=== PATIENT | male | born 1995 | race African-American/Black ===

== ENCOUNTER 2017-08-15 07:26 | Emergency (ER) | payer MEDICAID, OTHER ==
[~2017-08-15] VITALS: Ht 172.7 cm; Wt 72.6 kg
[2017-08-15] MEDS ORDERED: IBUPROFEN 800 MG TAB PO ONE (08:00)
[2017-08-15 08:11] VITALS: BP 131/83
== END 2017-08-15 08:51 | disposition home or self-care (01) ==
LOC: EDBD 07:26 → ER 07:31
DX: S39.012A Strain of muscle, fascia and tendon of lower back, initial encounter (principal); S01.531A Puncture wound without foreign body of lip, initial encounter; F17.210 Nicotine dependence, cigarettes, uncomplicated; V43.62XA Car passenger injured in collision with other type car in traffic accident, initial encounter; Y93.89 Activity, other specified; Y92.488 Other paved roadways as the place of occurrence of the external cause; Y99.8 Other external cause status
CPT/HCPCS: 72100

== ENCOUNTER 2018-05-07 08:38 | Emergency (ER) | payer MEDICAID ==
[~2018-05-07] VITALS: Ht 170.2 cm; Wt 72.6 kg
[2018-05-07 08:49] VITALS: BP 120/75
[2018-05-07] MEDS ORDERED: KETOROLAC TROMETH 60MG/2ML VIAL IM ONE (09:45)
== END 2018-05-07 10:39 | disposition home or self-care (01) ==
LOC: ER 08:41
DX: M54.5 Low back pain (principal); G89.29 Other chronic pain; F17.210 Nicotine dependence, cigarettes, uncomplicated; V49.9XXA Car occupant (driver) (passenger) injured in unspecified traffic accident, initial encounter; Y93.89 Activity, other specified; Y92.89 Other specified places as the place of occurrence of the external cause; Y99.8 Other external cause status
CPT/HCPCS: J1885

== ENCOUNTER 2019-08-28 17:40 | Emergency (ER) | payer MEDICAID ==
[~2019-08-28] VITALS: Ht 170.2 cm; Wt 72.6 kg
[2019-08-28 19:07] VITALS: BP 141/72
[2019-08-28] MEDS ORDERED: ACETAMINOPHEN 325 MG TAB PO ONE (19:15)
[2019-08-28] MEDS ORDERED: IBUPROFEN 800 MG TAB PO ONE (19:15)
[2019-08-28 19:58] LABS: Basophils # (auto) 0.1 10 ^3/uL (0-0.2); Eosinophils # (auto) 0.1 10 ^3/uL (0-0.8); Hemoglobin 12.5 g/dL (13.5-17.5); Mean Corpuscular Hemoglobin 23.4 pg (28.0-32.0); Monocytes # (auto) 0.7 10 ^3/uL (0-1.3); Nucleated Red Blood Cells % 0.1 %
[2019-08-28 19:59] LABS: Basophils % (auto) 0.8 % (0.0-2.0); Eosinophils % (auto) 0.8 % (0.0-7.0); Hematocrit 39.4 % (41.0-53.0); Lymphocytes # (auto) 1.8 10 ^3/uL (0.4-5.4); Lymphocytes % (auto) 17.4 % (10.0-50.0); Mean Corpuscular Hgb Conc. 31.7 g/dL (32.0-36.0); Mean Corpuscular Volume 73.9 fL (80.0-100.0); Monocytes % (auto) 6.4 % (0.0-12.0); Neutrophils # (auto) 7.7 10 ^3/uL (1.6-8.6); Neutrophils % (auto) 74.6 % (37.0-80.0); Platelet Count (auto) 359 10^3/uL (140-450); Red Blood Cells 5.32 10^6/uL (4.5-5.90); Red Cell Distribution Width 15.5 % (11.8-14.3); White Blood Cell 10.3 10^3/uL (4.4-10.8)
[2019-08-28 20:03] LABS: Alcohol, Urine < 3.0 mg/dL (0-5); Amphetamine Screen, Urine NEGATIVE (NEGATIVE); Barbiturate Scree,Urine NEGATIVE (NEGATIVE); Benzodiazephine Screen, Urine NEGATIVE (NEGATIVE); Cannabinoid Screen, Urine POSITIVE (NEGATIVE); Cocaine Screen, Urine NEGATIVE (NEGATIVE); Opiate Scree,Urine NEGATIVE (NEGATIVE); Phencyclidine Screen, Urine NEGATIVE (NEGATIVE)
[2019-08-28 20:03] LABS: Albumin 3.6 g/dL (3.4-5.0); Calcium 8.9 mg/dL (8.5-10.1); Potassium 3.3 mmol/L (3.5-5.1)
[2019-08-28 20:05] LABS: BUN/Creatinine Ratio 14.5
[2019-08-28 20:07] LABS: Bilirubin, Total 0.2 mg/dL (0.2-1.0)
[2019-08-28] MEDS ORDERED: LIDOCAINE 1% HCL (LOCAL ANESTH.) INJ 20ML MDV IJ ONE (21:00)
[2019-08-28] MEDS ORDERED: cefTRIAXone SOD 1,000 MG VL IM ONE (21:00)
== END 2019-08-28 21:47 | disposition home or self-care (01) ==
LOC: ER 17:40
DX: L02.412 Cutaneous abscess of left axilla (principal); L02.411 Cutaneous abscess of right axilla; E11.9 Type 2 diabetes mellitus without complications; F17.210 Nicotine dependence, cigarettes, uncomplicated
CPT/HCPCS: 36415; 80053; 80307; 80329; 85025; 87205; 96372; 99283; J0696; J2001

== ENCOUNTER → 2019-08-29 | Emergency (ER) | payer MEDICAID ==
[~2019-08-29] VITALS: Ht 170.2 cm; Wt 72.6 kg
[2019-08-29 02:41] VITALS: BP 101/83
== END | disposition home or self-care (01) ==
LOC: ER 02:34
DX: L02.412 Cutaneous abscess of left axilla (principal); L02.411 Cutaneous abscess of right axilla; E11.9 Type 2 diabetes mellitus without complications; F17.210 Nicotine dependence, cigarettes, uncomplicated

== ENCOUNTER 2020-01-24 08:51 | Emergency (ER) | payer MEDICAID ==
[~2020-01-24] VITALS: Ht 170.2 cm; Wt 68.0 kg
[2020-01-24 11:02] VITALS: BP 116/69
== END 2020-01-24 11:36 | disposition home or self-care (01) ==
LOC: ER 08:51 → MERGE 08:51 → ER 11:36
DX: Z48.01 Encounter for change or removal of surgical wound dressing (principal); L02.412 Cutaneous abscess of left axilla

== ENCOUNTER 2020-01-25 09:38 | Emergency (ER) | payer MEDICAID ==
[~2020-01-25] VITALS: Ht 170.2 cm; Wt 68.0 kg
[2020-01-25 11:15] VITALS: BP 114/63
== END 2020-01-25 11:40 | disposition home or self-care (01) ==
LOC: ER 09:38 → MERGE 09:38 → ER 11:40
DX: L02.414 Cutaneous abscess of left upper limb (principal); E11.9 Type 2 diabetes mellitus without complications; F12.10 Cannabis abuse, uncomplicated

== ENCOUNTER 2020-01-26 09:52 | Emergency (ER) | payer MEDICAID ==
[~2020-01-26] VITALS: Ht 170.2 cm; Wt 68.0 kg
[2020-01-26 09:58] VITALS: BP 114/60
== END 2020-01-26 12:29 | disposition home or self-care (01) ==
LOC: MERGE 09:52 → ER 09:52
DX: Z48.00 Encounter for change or removal of nonsurgical wound dressing (principal); E11.9 Type 2 diabetes mellitus without complications

== ENCOUNTER 2020-01-27 09:28 | Emergency (ER) | payer MEDICAID ==
[~2020-01-27] VITALS: Ht 170.2 cm; Wt 68.0 kg
[2020-01-27 09:33] VITALS: BP 117/77
== END 2020-01-27 10:28 | disposition home or self-care (01) ==
LOC: ER 09:28 → MERGE 09:28 → ER 10:14
DX: Z48.01 Encounter for change or removal of surgical wound dressing (principal); Z76.0 Encounter for issue of repeat prescription

== ENCOUNTER 2020-01-28 10:05 | Emergency (ER) | payer MEDICAID ==
[~2020-01-28] VITALS: Ht 170.2 cm; Wt 68.0 kg
[2020-01-28 10:15] VITALS: BP 129/56
== END 2020-01-28 11:03 | disposition home or self-care (01) ==
LOC: ER 10:05
DX: L02.412 Cutaneous abscess of left axilla (principal); F17.210 Nicotine dependence, cigarettes, uncomplicated; F12.10 Cannabis abuse, uncomplicated; Z48.01 Encounter for change or removal of surgical wound dressing

== ENCOUNTER 2020-02-01 13:16 | Emergency (ER) | payer MEDICAID ==
[~2020-02-01] VITALS: Ht 170.2 cm; Wt 72.6 kg
[2020-02-01 13:36] VITALS: BP 115/68
== END 2020-02-01 15:29 | disposition home or self-care (01) ==
LOC: ER 13:16
DX: Z48.01 Encounter for change or removal of surgical wound dressing (principal)

== ENCOUNTER 2020-02-02 11:40 | Emergency (ER) | payer MEDICAID ==
[~2020-02-02] VITALS: Ht 170.2 cm; Wt 72.6 kg
[2020-02-02 12:11] VITALS: BP 112/67
== END 2020-02-02 13:19 | disposition home or self-care (01) ==
LOC: ER 11:40
DX: L73.2 Hidradenitis suppurativa (principal); Z48.01 Encounter for change or removal of surgical wound dressing

== ENCOUNTER 2020-02-09 11:22 | Emergency (ER) | payer MEDICAID ==
[~2020-02-09] VITALS: Ht 167.6 cm; Wt 72.6 kg
[2020-02-09 14:28] VITALS: BP 122/72
== END 2020-02-09 14:42 | disposition home or self-care (01) ==
LOC: ER 11:22
DX: Z48.01 Encounter for change or removal of surgical wound dressing (principal); L02.412 Cutaneous abscess of left axilla; F17.210 Nicotine dependence, cigarettes, uncomplicated
CPT/HCPCS: 87205

== ENCOUNTER 2020-02-21 10:14 | Emergency (ER) | payer MEDICAID ==
[~2020-02-21] VITALS: Ht 170.2 cm; Wt 72.6 kg
[2020-02-21 10:34] VITALS: BP 137/87
== END 2020-02-21 11:25 | disposition home or self-care (01) ==
LOC: ER 10:14
DX: Z48.01 Encounter for change or removal of surgical wound dressing (principal)

== ENCOUNTER 2020-02-26 12:19 | Emergency (ER) | payer MEDICAID ==
[~2020-02-26] VITALS: Ht 170.2 cm; Wt 72.6 kg
[2020-02-26 13:30] VITALS: BP 124/74
== END 2020-02-26 13:50 | disposition home or self-care (01) ==
LOC: ER 12:19
DX: L02.412 Cutaneous abscess of left axilla (principal); F17.210 Nicotine dependence, cigarettes, uncomplicated; F12.10 Cannabis abuse, uncomplicated; Z76.0 Encounter for issue of repeat prescription

== ENCOUNTER 2020-12-15 09:34 | Emergency (ER) | payer MEDICAID ==
[~2020-12-15] VITALS: Ht 170.2 cm; Wt 72.6 kg
[2020-12-15 10:05] VITALS: BP 143/91
== END 2020-12-15 10:17 | disposition home or self-care (01) ==
LOC: ER 09:34
DX: L02.412 Cutaneous abscess of left axilla (principal); F17.210 Nicotine dependence, cigarettes, uncomplicated; Z87.2 Personal history of diseases of the skin and subcutaneous tissue

== ENCOUNTER 2020-12-23 21:26 | Emergency (ER) | payer MEDICAID ==
[~2020-12-23] VITALS: Ht 167.6 cm; Wt 72.6 kg
[2020-12-23 21:34] VITALS: BP 141/90
== END 2020-12-24 01:00 | disposition left against medical advice (07) ==
LOC: ER 21:28
DX: M79.602 Pain in left arm (principal); Z53.21 Procedure and treatment not carried out due to patient leaving prior to being seen by health care provider

== ENCOUNTER 2023-03-03 21:49 | Emergency (ER) | payer MEDICAID ==
[~2023-03-03] VITALS: Ht 170.2 cm; Wt 62.0 kg
[~2023-03-03 21:49] MED LIST: CLIN1PAD EX; DOXY-447 PO; IBUP-1456 PO; MUPI2OIN2 EX
[2023-03-04] MEDS ORDERED: AMOX875T4 PO (03:03)
[2023-03-04] MEDS ORDERED: IBUP-1456 PO (03:03)
[2023-03-04] MEDS ORDERED: KETOROLAC TROMETH 60MG/2ML VIAL IM ONE (03:15)
[2023-03-04 03:49] VITALS: BP 128/78; PULSE 79; RESP 17; TEMP 97.9
[2023-03-04 03:51] VITALS: O2SAT 98
== END 2023-03-04 05:00 | disposition home or self-care (01) ==
LOC: ER 21:49
DX: L73.2 Hidradenitis suppurativa (principal); F17.210 Nicotine dependence, cigarettes, uncomplicated; F15.90 Other stimulant use, unspecified, uncomplicated; Z48.00 Encounter for change or removal of nonsurgical wound dressing; Z79.899 Other long term (current) drug therapy
CPT/HCPCS: 96372; 99283; J1885

== ENCOUNTER 2023-03-10 14:27 | Emergency (ER) | payer MEDICAID ==
[~2023-03-10] VITALS: Ht 170.2 cm; Wt 77.4 kg
[~2023-03-10 14:27] MED LIST changes: +AMOX875T4 PO
[2023-03-10 18:40] VITALS: BP 129/86; PULSE 91; RESP 16; TEMP 97.8; O2SAT 97
[2023-03-10] MEDS ORDERED: PRED20TA2 PO (19:44)
[2023-03-10] MEDS ORDERED: ACE3T PO (19:44)
[2023-03-10] MEDS ORDERED: CLIN1GEL9 EX (19:44)
[2023-03-10] MEDS ORDERED: cefTRIAXone SOD 1,000 MG VL IM ONE (19:45)
[2023-03-10] MEDS ORDERED: KETOROLAC TROMETH 60MG/2ML VIAL IM ONE (19:45)
== END 2023-03-10 20:40 | disposition home or self-care (01) ==
LOC: ER 14:27
DX: L73.2 Hidradenitis suppurativa (principal); F17.210 Nicotine dependence, cigarettes, uncomplicated; Z79.1 Long term (current) use of non-steroidal anti-inflammatories (NSAID); Z79.2 Long term (current) use of antibiotics; Z79.899 Other long term (current) drug therapy
CPT/HCPCS: 96372; 99284; J0696; J1885

== ENCOUNTER 2023-04-16 12:39 | Emergency (ER) | payer MEDICAID ==
[~2023-04-16] VITALS: Ht 170.2 cm; Wt 83.9 kg
[~2023-04-16 12:39] MED LIST changes: +ACE3T PO; +CLIN1GEL9 EX; +PRED20TA2 PO
[2023-04-16 16:30] VITALS: BP 148/68; PULSE 90; RESP 18; TEMP 98.3; O2SAT 96
[2023-04-16] MEDS ORDERED: DOXY-286 PO (17:16)
[2023-04-16] MEDS ORDERED: MELO-335 PO (17:16)
== END 2023-04-16 17:27 | disposition home or self-care (01) ==
LOC: ER 12:39
DX: R21 Rash and other nonspecific skin eruption (principal); F17.210 Nicotine dependence, cigarettes, uncomplicated; F12.10 Cannabis abuse, uncomplicated; M25.511 Pain in right shoulder; W11.XXXA Fall on and from ladder, initial encounter; Y93.89 Activity, other specified; Y92.89 Other specified places as the place of occurrence of the external cause; Y99.8 Other external cause status
CPT/HCPCS: 73030

== ENCOUNTER 2023-05-04 23:57 | Emergency (ER) | payer MEDICAID ==
[~2023-05-04] VITALS: Ht 170.2 cm; Wt 79.5 kg
[~2023-05-04 23:57] MED LIST changes: +DOXY-286 PO; +MELO-335 PO
[2023-05-05] MEDS ORDERED: KETOROLAC TROMETH 30 MG/ML 1ML VIAL IM ONE (02:30)
[2023-05-05] MEDS ORDERED: CLIN1GEL9 EX (02:36)
[2023-05-05] MEDS ORDERED: IBUP1TAB4 PO (02:36)
[2023-05-05 05:45] VITALS: BP 136/72; PULSE 82; RESP 16; TEMP 97.8; O2SAT 98
== END 2023-05-05 07:04 | disposition home or self-care (01) ==
LOC: ER 23:57
DX: L73.2 Hidradenitis suppurativa (principal); F17.210 Nicotine dependence, cigarettes, uncomplicated; Z79.2 Long term (current) use of antibiotics; Z79.1 Long term (current) use of non-steroidal anti-inflammatories (NSAID); Z79.899 Other long term (current) drug therapy
CPT/HCPCS: 96372; 99283; J1885

== ENCOUNTER 2023-06-10 22:15 | Emergency (ER) | payer MEDICAID ==
[~2023-06-10] VITALS: Ht 170.2 cm; Wt 93.0 kg
[~2023-06-10 22:15] MED LIST changes: +IBUP1TAB4 PO
[2023-06-10 22:25] VITALS: BP 146/83; PULSE 88; RESP 18; O2SAT 98
[2023-06-11] MEDS ORDERED: IBUP-1456 PO (03:02)
[2023-06-11] MEDS: KETOROLAC TROMETH 60MG/2ML VIAL IM ONE (03:12)
== END 2023-06-11 03:16 | disposition home or self-care (01) ==
LOC: ER 22:15
DX: L73.2 Hidradenitis suppurativa (principal); F17.210 Nicotine dependence, cigarettes, uncomplicated; F12.10 Cannabis abuse, uncomplicated
CPT/HCPCS: 96372; 99283; J1885

== ENCOUNTER 2024-06-22 01:44 | Emergency (ER) | payer MEDICAID ==
[~2024-06-22] VITALS: Ht 170.2 cm; Wt 73.6 kg
[~2024-06-22 01:44] MED LIST changes: -DOXY-447 PO; +DOXY1CAP58 PO; -MELO-335 PO; +MELO15TA29 PO
[2024-06-22 02:00] VITALS: BP 139/83; PULSE 73; RESP 13; O2SAT 96
--- NOTE | 2024-06-22 04:10 | ED.PDOC ---
History of Present Illness(SKN HPI Comments 29-YEAR-OLD MALE PRESENTS TO ER FOR WOUND CHECK. PATIENT WITH PAST MEDICAL HISTORY SIGNIFICANT FOR HIDRADENITIS SUPPURATIVA REPORTS THAT HE HAS BEEN EXPERIENCING A HIDRADENITIS SUPPURATIVA FLARE-UP TO BUTTOCKS WITH 10/10 LOCALIZED TO THIS REGION X1 WEEK. DENIES USE OF MEDICATIONS FOR CURRENT SYMPTOMS. PATIENT PRESENTS TO ER AMBULATORY ON ARRIVAL, WITH STEADY GAIT, IN NO DISTRESS, WITH VITALS STABLE. DENIES FEVER, BODY ACHES, CHILLS, RECTAL PAIN, CHANGES IN BM OR ANY FURTHER SYMPTOMS/COMPLAINTS Chief Complaint: Wound Check Time Seen by MD: 02:20 Primary Care Provider: SHANDRA History of Present Illness: Nurses Notes, Medications, Allergies Allergies: Coded Allergies: NO KNOWN ALLERGIES (Unverified , 08/15/17) Home Meds Active Scripts Ibuprofen (Ibuprofen) 800 Mg Tab, 1 TAB PO TID PRN, #30 TAB 0 Refills Prov:NINA GROSSMAN 06/22/24 Amoxicillin & Pot Clavulanate (Amoxicillin/Potassium Cla) 875 Mg Tab, 1 TAB PO BID for 7 Days, #14 TAB 0 Refills Prov:NINA GROSSMAN 06/22/24 Clindamycin Phosphate (Clindagel) 1 % Gel, 1 % EX BID, #1 GEL 0 Refills Prov:PRABHAKAR TAPIA 06/11/23 Ibuprofen (Ibuprofen) 800 Mg Tab, 800 MG PO TID PRN, #30 TAB Prov:PRABHAKAR TAPIA 06/11/23 Ibuprofen Micronized (Ibuprofen) 400 Mg Tab, 400 MG PO Q4HP PRN, #30 TAB Prov:PRABHAKAR TAPIA 05/05/23 Meloxicam (Meloxicam) 15 Mg Tab, 15 MG PO DAILY for 30 Days, #30 TAB 0 Refills Prov:JOSSELYN MURPHY NP 04/16/23 Doxycycline Hyclate (DOXYCYCLINE HYCLATE) 100 Mg Tab, 1 TAB PO BID for 10 Days, #20 TAB 0 Refills Prov:JOSSELYN MURPHY NP 04/16/23 Prednisone (Prednisone) 20 Mg Tab, 20 MG PO BID for 5 Days, #10 TAB 0 Refills Prov:NINA GROSSMAN 03/10/23 Acetaminophen W/ Codeine (Tylenol W/Cod #3) 1 Tab Tb, 1 TAB PO QIDP, #10 TAB 0 Refills Prov:NINA GROSSMAN 03/10/23 Ibuprofen (Ibuprofen) 800 Mg Tab, 1 TAB PO TID PRN, #30 TAB 0 Refills Prov:NINA GROSSMAN 03/04/23 Amoxicillin & Pot Clavulanate (Amoxicillin/Potassium Cla) 875 Mg Tab, 1 TAB PO BID for 7 Days, #14 TAB 0 Refills Prov:NINA GROSSMAN 03/04/23 Clindamycin Phosphate (Clindamycin Phosphate) 1 % Pad, 1 % EX BID, #90 PAD apply to groin infected areas as instructed Prov:SHIRLEY MCNULTY MD 01/04/23 Doxycycline (Monohydrate) (Doxycycline) 100 Mg Cap, 100 MG PO BID for 7 Days, #20 CAP 0 Refills Prov:SHIRLEY MCNULTY MD 01/04/23 Mupirocin (Pseudomonas Fluores (Mupirocin) 2 % Oin, 1 APPLIC EX BID for 10 Days, #1 OIN Prov:LESLEE CR NP 10/07/22 Information Source: Patient Mode of Arrival: Ambulatory Tetanus: UTD Past Medical History PAST MEDICAL HISTORY: Denies Surgical History: Denies all surgeries Family History Family History: Unknown Social History Smoker: Cigarettes, Less Than 1 Pack/Day Alcohol: Denies ETOH Use Drugs: Marijuana Lives In: Home Constitutional: denies: chills, diaphoresis, fatigue, fever, malaise, sweats, weakness, others EENTM: denies: blurred vision, double vision, ear bleeding, ear discharge, ear drainage, ear pain, ear ringing, eye pain, eye redness, hearing loss, mouth pain, mouth swelling, nasal discharge, nose bleeding, nose congestion, nose pain, photophobia, tearing, throat pain, throat swelling, voice changes, others Respiratory: denies: cough, hemoptysis, orthopnea, SOB at rest, shortness of breath, SOB with excertion, stridor, wheezing, others Cardiovascular: denies: chest pain, dizzy spells, diaphoresis, Dyspnea on exertion, edema, irregular heart beat, left arm pain, lightheadedness, palpitations, PND, syncope, others Gastrointestinal: denies: abdomen distended, abdominal pain, blood streaked bowels, constipated, diarrhea, dysphagia, difficulty swallowing, hematemesis, melena, nausea, poor appetite, poor fluid intake, rectal bleeding, rectal pain, vomiting, others Genitourinary: denies: burning, dysuria, flank pain, frequency, hematuria, incontinence, penile discharge, penile sore, pain, testicle pain, testicle swelling, urgency, others Neurological: denies: dizziness, fainting, headache, left sided numbness, left sided weakness, numbness, paresthesia, pre-existing deficit, right sided numbness, right sided weakness, seizure, speech problems, tingling, tremors, weakness, others Musculoskeletal: denies: back pain, gout, joint pain, joint swelling, muscle pain, muscle stiffness, neck pain, others Integumetry: reports: others ( STATED IN HPI) Allergic/Immunocompromised: denies: Difficulty Healing, Frequent Infections, Hives, Itching, others Hematologic/Lymphatic: denies: anemia, blood clots, easy bleeding, easy bruising, swollen glands, others Endocrine: denies: excessive hunger, excessive sweating, excessive thirst, excessive urination, flushing, intolerance to cold, intolerance to heat, unexplained weight gain, unexplained weight loss, others Psychiatric: denies: anxiety, bipolar disorder, depression, hopeless, panic disorder, schizophrenia, sleepless, suicidal, others Physical Exam General Appearance: No Apparent Distress HEENT: PERRL/EOMI Neck: Full Range of Motion, Non-Tender, Normal Respiratory: Chest Non-Tender, Lungs Clear, No Accessory Muscle Use, No Respiratory Distress, Normal Breath Sounds Cardiovascular: No Murmur, No Gallop, Regular Rate/Rhythm Breast Exam: Deferred Gastrointestinal: Non Tender, No Pulsatile Mass, Soft Genitalia: Deferred Pelvic: Deferred Rectal: Deferred Extremities: Normal capillary refill, Normal range of motion Neurologic: Alert, No Motor Deficits, Normal Affect, Normal Mood, No Sensory Deficits Cerebellar Function: Normal Reflexes: Normal Skin: Dry, Warm, Other (HIDRADENITIS SUPPURATIVA NOTED TO BILATERAL BUTTOCKS WITH MINIMAL YELLOW DRAINAGE) Peripheral Pulses: 2+ Radial (R), 2+ Radial (L), 2+ Brachial (R), 2+ Brachial (L) Lymphatic: No Adenopathy Was a procedure done? Was a procedure done?: No Sedation Sedation?: No Differential Diagnosis (INTG) Differential Diagnosis: Abrasion Differential Diagnosis: Impetigo Abscess: Abscess Differential Diagnosis: Puncture Wound, Retained Foreign Body X-Ray, Labs, Meds, VS Vital Signs Date Time Temp Pulse Resp B/P (MAP) Pulse Ox O2 Delivery O2 Flow Rate FiO2 06/22/24 02:00 97.7 73 13 139/83 (101) 96 WOUND CARE/CLEANING DISCUSSED AND ADVISED PREVIOUS CHART VISITS REVIEWED ADVISED TO FOLLOW UP WITH PCP AND SPA ASSOCIATE IN 1-2 DAYS PATIENT VERBALIZED UNDERSTANDING AND AGREEABLE WITH CURRENT PLAN OF CARE ADVISED TO RETURN TO ER IMMEDIATELY IF SYMPTOMS WORSEN Time of 1ST Reevaluation: 03:44 Reevaluation 1ST: N/A Patient Education/Counseling: Diagnosis, Treatment, Prognosis, Need For Follow Up Family Education/Counseling: No Family Present Departure 1 Departure Time of Disposition: 04:02 Impression: Primary Impression: Hidradenitis suppurativa Disposition: 01 HOME / SELF CARE / HOMELESS Condition: Stable e-Prescriptions Ibuprofen (Ibuprofen) 800 Mg Tab 1 TAB PO TID PRN, #30 TAB 0 Refills Prov: NINA GROSSMAN 06/22/24 Amoxicillin & Pot Clavulanate (Amoxicillin/Potassium Cla) 875 Mg Tab 1 TAB PO BID for 7 Days, #14 TAB 0 Refills Prov: NINA GROSSMAN 06/22/24 Discharged With: Self Critical Care Note Critical Care Time?: No Stability Stability form required: No Heart Score Heart Score: Heart Score Response (Comments) Value History N/A 0 EKG N/A 0 Age N/A 0 Risk Factors N/A 0 Troponin N/A 0 Total 0 NINA GROSSMAN Jun 22, 2024 04:09
== END 2024-06-22 04:24 | disposition home or self-care (01) ==
LOC: ER 01:44
DX: L73.2 Hidradenitis suppurativa (principal); F17.210 Nicotine dependence, cigarettes, uncomplicated; Z79.52 Long term (current) use of systemic steroids; Z79.1 Long term (current) use of non-steroidal anti-inflammatories (NSAID)